=== PATIENT | male | born 1985 | race Caucasian/White ===

== ENCOUNTER 2017-12-11 13:27 | Emergency (ER) | payer BC ==
[2017-12-11 13:37] VITALS: BP 132/80; PULSE 63; TEMP 98.8; BMI 27.2
--- NOTE | 2017-12-11 13:56 | PDOC ---
Attending Attestation - Resident Resident Name: Divina Wesley - ED Attending Attestation I have performed the following: I have examined & evaluated the patient
[2017-12-11] MEDS ORDERED: MAG HYDROX/AL HYDROX/SIMETH -MYLANTA- ORAL SUSPENSION PO ONE (13:59)
[2017-12-11] MEDS ORDERED: FAMOTIDINE 20 MG/50 ML IVPB 20 MG/50 ML MG IVPB ONE ×2 (13:59→14:07)
[2017-12-11] MEDS ORDERED: MAG HYDROX/AL HYDROX/SIMETH 30 ML UNIT-DOSE CUP ONE ×2 (14:07→16:48)
--- NOTE | 2017-12-11 14:14 | PDOC ---
History of Present Illness - General Chief Complaint: Chest Pain Stated Complaint: CHEST PAIN, RECTAL BLEEDING Time Seen by Provider: 12/11/17 13:35 - History of Present Illness Initial Comments: 12/11/17 14:12 hx of eosinophilic esophatiits requiring hospitalization 2x per year 4 days ago had difficulty swallowing food 3 days ago started having chest pain in the middle from neck to the upper chest worse with eating and swallowing described as burning, non radiating, not relieved with TUMs 3 days ago started having diarrhea with bright red blood this AM chest pain woke him up from sleep, he was diaphoretic Past History - Past Medical History Allergies/Adverse Reactions: Allergies Allergy/AdvReac Type Severity Reaction Status Date / Time shellfish derived Allergy Verified 12/11/17 14:19 Home Medications: Ambulatory Orders Fluticasone Prop 0.05% Nasal [Flonase -] 1 - 2 spray NS DAILY 12/11/17 Ranitidine HCl 150 mg PO TID #20 tablet 12/11/17 COPD: No CHF: No GI Disorders: (EOSINOPHILIC ESOPHAGITIS) Disorders: Yes - Suicide/Smoking/Psychosocial Hx Smoking History: Never smoked Have you smoked in the past 12 months: No Information on smoking cessation initiated: No Hx Alcohol Use: (occasional) *Physical Exam - Vital Signs Last Vital Signs Temp Pulse Resp BP Pulse Ox 98.8 F 63 18 132/80 99 12/11/17 13:27 12/11/17 13:27 12/11/17 13:27 12/11/17 13:27 12/11/17 13:27 - Physical Exam Comments: 12/11/17 14:33 normal exam rectal: no hemorrhoids no gross blood ED Treatment Course - LABORATORY CBC & Chemistry Diagram: 12/11/17 14:18 12/11/17 14:18 - ADDITIONAL ORDERS Additional order review: Laboratory Results 12/11/17 14:03 Stool Occult Blood Negative - RADIOLOGY Radiology Studies Ordered: Category Date Time Status CHEST PA & LAT [RAD] Stat Radiology 12/11/17 13:53 Ordered *DC/Admit/Observation/Transfer Diagnosis at time of Disposition: GERD (gastroesophageal reflux disease), Chest pain - Discharge Dispostion Disposition: HOME Condition at time of disposition: Stable - Prescriptions Prescriptions: Ranitidine HCl 150 mg PO TID #20 tablet - Referrals Referrals: Praful Fink MD [Staff Physician] - - Patient Instructions Printed Discharge Instructions: DI for Atypical Chest Pain Additional Instructions: You were seen in the ED for complaints of chest pain. In the ED you were evaluated with labwork and imaging. Your results were unremarkable. There does not appear to be an acute need for immediate hospitalization. You are advised to follow up with your primary care physician within 1 week. You were given a referral for gastroenterology and advised to follow up with 4- 5 days. You were given a prescription for anti-acid medications. Please take medications as directed. Return to the ED immediately if you experience worsening chest pain, nausea, vomiting, diarrhea, constipation, fevers, coughing up blood, inability to swallow, difficulty breathing. - Post Discharge Activity Forms/Work/School Notes: Back to Work
[2017-12-11 14:35] LABS: MCHC 32.8 g/dl (32.0-35.9); RBC 5.35 M/mm3 (4.00-5.60)
[2017-12-11 14:37] LABS: HEMATOCRIT 45.4 % (35.4-49); HEMOGLOBIN 14.9 GM/dl (11.7-16.9); MCH 27.8 pg (25.7-33.7); MEAN CELL VOLUME 84.9 fl (80-96); MEAN PLT VOLUME 8.6 fl (7.5-11.1); PLATELET COUNT 308 K/MM3 (134-434); RDW 12.5 % (11.9-15.9); WHITE BLOOD COUNT 13.7 K/mm3 (4.0-10.8)
[2017-12-11 14:43] LABS: ALBUMIN 4.2 g/dl (3.5-5.0); ALK PHOS 148 U/L (32-92); ANION GAP 7 MMOL/L (8-16); BILIRUBIN,TOTAL 0.6 mg/dl (0.2-1.0); BLOOD UREA NITROGEN 10 mg/dl (7-18); CALCIUM 9.3 mg/dl (8.4-10.2); CHLORIDE 99 mmol/L (98-107); CO2 30 mmol/L (22-28); CREATININE 0.9 mg/dl (0.6-1.3); GLUCOSE,RANDOM 88 mg/dl (74-106); POTASSIUM 3.9 mmol/L (3.5-5.1); SGOT/AST 20 U/L (10-42); SGPT/ALT 23 U/L (10-40); SODIUM 136 mmol/L (136-145); TOT PROT 7.9 g/dl (6.4-8.3)
[2017-12-11 15:49] LABS: PLATELET ESTIMATE ADEQUATE
[2017-12-11] MEDS ORDERED: MAG HYDROX/AL HYDROX/SIMETH 30 ML UNIT-DOSE CUP PO ONE (16:38)
--- NOTE | 2017-12-12 10:22 | EKG ---
Test Reason : Blood Pressure : / mmHG Vent. Rate : 067 BPM Atrial Rate : 067 BPM P-R Int : 158 ms QRS Dur : 086 ms QT Int : 384 ms P-R-T Axes : 063 038 015 degrees QTc Int : 405 ms NORMAL SINUS RHYTHM NORMAL ECG NO PREVIOUS ECGS AVAILABLE Confirmed by SABRINA ALCOCER MD ([id number]) on 12/12/2017 10:22:09 AM Referred By: EDGAR POND Confirmed By:SABRINA ALCOCER MD
== END 2017-12-11 17:00 | disposition home or self-care (01) ==
LOC: FER 13:27
PROC: 3E033GC Introduction of Other Therapeutic Substance into Peripheral Vein, Percutaneous Approach (ICD-10-PCS; principal; 2017-12-11)
DX: K21.9 Gastro-esophageal reflux disease without esophagitis (principal); R07.9 Chest pain, unspecified
CPT/HCPCS: 36415; 71046-TC-FY; 80053; 82272; 82550; 82553; 84484; 85025; 93005; 99284-25

== ENCOUNTER 2018-02-18 07:51 | Day surgery (SDC) | payer BC ==
[2018-02-13 13:54] VITALS: BMI 26.5
[2018-02-18] MEDS ORDERED: LIDOCAINE HCL/PF 2% SDV 5ML VIAL ONE (08:49)
[2018-02-18] MEDS ORDERED: PROPOFOL 20 ML ONE (08:49)
[2018-02-18 14:43] VITALS: PULSE 65
[2018-02-18 14:53] VITALS: BP 100/61; TEMP 97.5
--- NOTE | 2018-02-23 18:40 | PATH ---
Surgical Pathology Report Patient Name: BRIGIDA BENZ [facility]. Rec. #: [id number] /Age/Gender: 1985 (Age: 32) / M Account: [id number] Location: [facility] Taken: 02/18/2018 Received: 02/18/2018 Reported: 02/23/2018 Physicians: Praful Fink M.D. Specimen(s) Received A: BX DUODENUM B: BX ANTRUM C: BX ESOPHAGUS Clinical History History of esophageal stricture and eosinophilic esophagitis Postoperative diagnosis: Esophageal stricture, eosinophilic esophagitis Final Diagnosis A. DUODENUM, BIOPSY: DUODENUM MUCOSA WITH NO DIAGNOSTIC ABNORMALITIES. NO HISTOLOGIC EVIDENCE OF CELIAC DISEASE B. ANTRUM, BIOPSY: GASTRIC MUCOSA WITH REACTIVE GASTROPATHY. IMMUNOSTAIN FOR H. PYLORI IS NEGATIVE. NEGATIVE FOR INTESTINAL METAPLASIA. C. ESOPHAGUS, BIOPSY: SQUAMOUS MUCOSA WITH BASAL LAYER HYPERPLASIA, INCREASED INTRAEPITHELIAL EOSINOPHILIC INFILTRATE, AND EOSINOPHILIC MICROABSCESS. Comment: Findings are consistent with eosinophilic esophagitis. Clinical correlation is recommended. Electronically Signed Diana Leon M.D. Gross Description A. Received in formalin, labeled "biopsy duodenum" are 3 agosto, irregular portions of soft tissue averaging 0.2 cm. in greatest dimension. The specimens are submitted in toto in one cassette. B. Received in formalin, labeled "biopsy antrum" are 3 agosto, irregular portions of soft tissue ranging from 0.1-0.4 cm. in greatest dimension. The specimens are submitted in toto in one cassette. C. Received in formalin, labeled "biopsy esophagus" are 2 agosto, irregular portions of soft tissue averaging 0.1 cm. in greatest dimension. The specimens are submitted in toto in one cassette. 02/20/2018 saudi02/20/2018
== END 2018-02-18 10:30 | disposition home or self-care (01) ==
LOC: FASU-ENDO 07:51
PROVIDERS: ATTEND Internal Medicine Gastroenterology
PROC: 0DB68ZX Excision of Stomach, Via Natural or Artificial Opening Endoscopic, Diagnostic (ICD-10-PCS; 2018-02-18)
PROC: 0DB58ZX Excision of Esophagus, Via Natural or Artificial Opening Endoscopic, Diagnostic (ICD-10-PCS; 2018-02-18)
PROC: 0D758ZZ Dilation of Esophagus, Via Natural or Artificial Opening Endoscopic (ICD-10-PCS; 2018-02-18)
PROC: 0DB98ZX Excision of Duodenum, Via Natural or Artificial Opening Endoscopic, Diagnostic (ICD-10-PCS; principal; 2018-02-18 08:30)
DX: K22.2 Esophageal obstruction (principal); K31.9 Disease of stomach and duodenum, unspecified; K20.0 Eosinophilic esophagitis; K22.8 Other specified diseases of esophagus; K29.70 Gastritis, unspecified, without bleeding
CPT/HCPCS: 88305-TC; 88342-TC